=== PATIENT | male | born 1945 | race Caucasian/White ===

== ENCOUNTER → 2020-12-22 | Day surgery (SDC) | payer MEDICARE, OTHER ==
[~2020-12-22] MED LIST: AMIT100T PO; ATOR20TA58 PO; BUPIVACAINE MPF 0.25% 10 ML VIAL. ONE; CLON1TAB PO; GLUC1TAB69 PO; IOHEXOL 300 MG/ML 50 ML VIAL. ONE; LIDOCAINE 1% PF 30 ML VIAL. ONE; LUTE1CAP5 PO; PANT40TA6 PO; RIBO100T PO; RIVA20TA2 PO; TOPI200T6 PO; TRAZ-125 PO; methylPREDNISolone ACETATE 40 MG/ML VIAL. ONE
[2020-12-22 12:01] VITALS: BP 123/62
== END | disposition home or self-care (01) ==
LOC: SURG 10:58
PROVIDERS: ATTEND Anesthesiology
DX: M71.551 Other bursitis, not elsewhere classified, right hip (principal); G89.29 Other chronic pain; M19.90 Unspecified osteoarthritis, unspecified site; Z96.643 Presence of artificial hip joint, bilateral; Z98.890 Other specified postprocedural states; Z79.01 Long term (current) use of anticoagulants; Z79.899 Other long term (current) drug therapy; Z85.46 Personal history of malignant neoplasm of prostate; Z86.718 Personal history of other venous thrombosis and embolism
CPT/HCPCS: 20610; 77002; J1030; J3490; Q9967

== ENCOUNTER → 2021-02-01 | Day surgery (SDC) | payer OTHER ==
[~2021-02-01] MED LIST changes: -IOHEXOL 300 MG/ML 50 ML VIAL. ONE; -methylPREDNISolone ACETATE 40 MG/ML VIAL. ONE; +methylPREDNISolone ACETATE 80 MG/ML VIAL. ONE
[2021-02-01 11:40] VITALS: BP 136/68
== END | disposition home or self-care (01) ==
LOC: SURG 11:00
PROVIDERS: ATTEND Anesthesiology
DX: M47.816 Spondylosis without myelopathy or radiculopathy, lumbar region (principal); M25.551 Pain in right hip; M70.60 Trochanteric bursitis, unspecified hip; Z79.899 Other long term (current) drug therapy; Z98.890 Other specified postprocedural states; Z88.8 Allergy status to other drugs, medicaments and biological substances
CPT/HCPCS: 64493; 64494; A4209; A4657; A4930; J1040; J3490